=== PATIENT | male | born 1950 | race Caucasian/White ===

== ENCOUNTER 2022-03-02 08:43 | Day surgery (SDC) | payer MEDICARE, OTHER ==
[~2022-03-02 08:43] MED LIST: Lactated Ringers 1,000 ML IV SCH; Midazolam 1 MG/ML 2 ML SDV ONE; Propofol 200 MG/20 ML SDV ONE; Sodium Chloride 0.9% 10 ML Syringe FLUSH PRN
[2022-03-02] MEDS ORDERED: Lidocaine 2% 5 ML SDV ONE (10:24)
[2022-03-02 11:37] VITALS: BP 108/69; PULSE 69
== END 2022-03-02 12:25 | disposition home or self-care (01) ==
LOC: LL.SDS 08:43
PROVIDERS: ATTEND Surgery
DX: Z12.11 Encounter for screening for malignant neoplasm of colon (principal); D12.0 Benign neoplasm of cecum; D12.3 Benign neoplasm of transverse colon; K22.9 Disease of esophagus, unspecified; I48.20 Chronic atrial fibrillation, unspecified; E06.4 Drug-induced thyroiditis; K21.9 Gastro-esophageal reflux disease without esophagitis; I11.0 Hypertensive heart disease with heart failure; I50.22 Chronic systolic (congestive) heart failure; E07.9 Disorder of thyroid, unspecified; Z79.01 Long term (current) use of anticoagulants; Z79.899 Other long term (current) drug therapy; Z98.890 Other specified postprocedural states; Z87.891 Personal history of nicotine dependence
CPT/HCPCS: J2250; J2704; J7120

== ENCOUNTER 2023-04-21 14:15 | Emergency (ER) | payer MEDICARE, OTHER ==
[2023-04-21 14:22] VITALS: BP 142/97; PULSE 82
[2023-04-21] MEDS ORDERED: Acetaminophen/HYDROcodone 325-5 MG Tab PO ONE (14:52)
[2023-04-22] MEDS ORDERED: Take Home: Acetaminophen/HYDROcodone 325-5 MG, 5 Tab Pack PO ONE (12:58)
== END 2023-04-21 15:50 | disposition home or self-care (01) ==
LOC: LL.ED 14:15
DX: S29.9XXA Unspecified injury of thorax, initial encounter (principal); Z79.01 Long term (current) use of anticoagulants; Z79.899 Other long term (current) drug therapy; W18.30XA Fall on same level, unspecified, initial encounter
CPT/HCPCS: 71101-LT; 99283; A9270-GY